=== PATIENT | female | born 1975 | race Caucasian/White ===

== ENCOUNTER → 2020-09-17 | Outpatient (CLI) | payer SELFPAY ==
[~2020-09-17] MED LIST: AC500T PO; ACHD5005 PO; HYDR-757 PO; IBP600T1 PO; IBUP-1773 PO; LEVO25TA5 PO; METF-397 PO; SULF1TAB35 PO
--- NOTE | 2020-09-17 14:15 | Diagnostic Imaging Report ---
PROCEDURE: Pelvic comp/transvaginal sonogram. TECHNIQUE: Complete transabdominal and transvaginal pelvic ultrasound was performed. In addition, limited pelvic Doppler was performed. INDICATION: Acute pelvic pain and heavy vaginal bleeding. Uterus is anteverted measuring 9.2 x 4.2 x 5.3 cm. There is an anterior uterine fibroid approximately 15 mm in size. Endometrium is 11 mm in thickness. A right ovary measures 2.8 x 1.3 x 1.2 cm and the left ovary measures 2.0 x 1.1 x 2.0 cm. Both ovaries contain blood flow. No adnexal mass or free fluid is detected. IMPRESSION: Small uterine fibroid. The study is otherwise unremarkable. Dictated by: Dictated on workstation # [id number]
== END ==
LOC: RAD 12:38
PROVIDERS: ATTEND Obstetrics & Gynecology
DX: D25.9 Leiomyoma of uterus, unspecified (principal)
CPT/HCPCS: 76830; 76856